=== PATIENT | male | born 1980 | race Asian ===

== ENCOUNTER 2022-01-18 14:07 | Emergency (ER) | payer OTHER ==
[~2022-01-18] VITALS: Ht 185.4 cm; Wt 94.8 kg
[2022-01-18 14:07] VITALS: BP 141/95; TEMP 98.3
[2022-01-18 15:04] LABS: PLATELET COUNT 219 K/uL (142-355); POTASSIUM 3.8 mmol/L (3.6-5.2)
[2022-01-18] MEDS ORDERED: DIVALPROEX500 M1 PO (16:41)
[2022-01-18] MEDS ORDERED: HALO5INJ3 IM (16:41)
[2022-01-18] MEDS ORDERED: HALO10TA5 PO (16:42)
[2022-01-18] MEDS ORDERED: LEVO0.0529 PO (16:42)
[2022-01-18] MEDS ORDERED: OLANZAPINE15 M1 PO (16:43)
[2022-01-18] MEDS ORDERED: LOSA50TA PO (16:43)
[2022-01-22] MEDS ORDERED: HALO5INJ3 IM (11:15)
[2022-01-22] MEDS ORDERED: DIVALPROEX250 MG PO (11:15)
[2022-01-22] MEDS ORDERED: INSUINJ20 SC (11:16)
[2022-01-22] MEDS ORDERED: LEVO0.0529 PO (11:16)
[2022-01-22] MEDS ORDERED: MAGNSUS68 PO (11:16)
[2022-01-22] MEDS ORDERED: LOSA50TA PO (11:16)
[2022-01-22] MEDS ORDERED: OLANZAPINE10 MG PO (11:17)
== END 2022-01-18 15:20 | disposition still patient (30) ==
LOC: ED 14:21
PROVIDERS: Emergency Medicine
DX: F20.89 Other schizophrenia (principal); R45.1 Restlessness and agitation; R44.2 Other hallucinations; I10 Essential (primary) hypertension; Z11.52 Encounter for screening for COVID-19; Z04.6 Encounter for general psychiatric examination, requested by authority
CPT/HCPCS: 80053; 81002; 85027; 87635; 93005; 99283; U0003